=== PATIENT | male | born 1995 | race Caucasian/White ===

== ENCOUNTER 2017-08-25 07:39 | Emergency (ER) | payer BC ==
[2017-08-25 07:51] VITALS: BP 137/82
[2017-08-25] MEDS ORDERED: Ketorolac INJ* 60 MG/2 ML VIAL IM ONE (07:57)
--- NOTE | 2017-08-25 08:25 | RAD ---
INDICATION: RIGHT wrist and hand pain specifically at the ulnar aspect and third through fifth metacarpals following punching injury. COMPARISON: November 29, 2011 RIGHT thumb radiographs. TECHNIQUE: AP and lateral hand views RIGHT hand. AP, lateral, and oblique views RIGHT wrist REPORT AND IMPRESSION: #. Normal articular alignment at the wrist and hand. Small avulsion fracture from the ulnar dorsal margin of the hamate bone with overlying soft tissue swelling. No additional fracture evident at the wrist or hand.
--- NOTE | 2017-08-25 08:49 | UC ---
Shawn Muñoz Julia, scribed for Yevgeniy Danielson MD on 08/25/17 at 0802 . Upper Extremity HPI - HPI Summary HPI Summary: A 21 year old M presents to [facility] with a chief complaint of R hand and wrist pain after punching a wall and mirror about an hour ago. Pain is 8/10 in severity. Reports a few abrasions to the right hand. - History of Current Complaint Chief Complaint: UCUpperExtremity Stated Complaint: WRIST AND HAND INJURY Time Seen by Provider: 08/25/17 07:44 Hx Obtained From: Patient Onset/Duration: Lasting Hours Severity Initially: Severe Severity Currently: Severe Pain Intensity: 8 Pain Scale Used: 0-10 Numeric Location Of Pain: Is Discrete @ - right hand Associated Signs And Symptoms: Positive: Other - abrasions Related History: Dominant Hand Right - Allergies/Home Medications Allergies/Adverse Reactions: Allergies Allergy/AdvReac Type Severity Reaction Status Date / Time MS Sulfamethoxazole Allergy Mild Rash Verified 08/19/15 17:07 w/Trimethoprim [From Bactrim] sulfamethoxazole Allergy Rash Verified 08/25/17 07:51 [From Bactrim] trimethoprim [From Bactrim] Allergy Rash Verified 08/25/17 07:51 PMH/Surg Hx/FS Hx/Imm Hx Previously Healthy: Yes Other History Of: Negative For: Anticoagulant Therapy - Surgical History Surgical History: None - Family History Known Family History: Negative: Cardiac Disease - Social History Alcohol Use: Daily Substance Use Type: Marijuana Substance Use Comment - Amount & Last Used: last used 1 day ago Smoking Status (MU): Heavy Every Day Tobacco Smoker Type: Cigarettes Amount Used/How Often: 1 PPD Length of Time of Smoking/Using Tobacco: 5 YRS - Immunization History Most Recent Influenza Vaccination: not this season Most Recent Tetanus Shot: 2014 Review of Systems Constitutional: Negative Skin: Other - abrasions to right hand Musculoskeletal: Myalgia - right hand All Other Systems Reviewed And Are Negative: Yes Physical Exam - Summary Physical Exam Summary: VITAL SIGNS: Reviewed. GENERAL: Patient is a well-developed and nourished male who is lying comfortable in the stretcher. Patient is not in any acute respiratory distress. HEAD AND FACE: Normocephalic EYES: PERRLA, EOMI x 2. EARS: Hearing grossly intact. MOUTH: Oropharynx within normal limits. NECK: Supple, trachea is midline, no adenopathy, no JVD, no carotid bruit. CHEST: Symmetric, no tenderness at palpation LUNGS: Clear to auscultation bilaterally. No wheezing or crackles. CVS: Regular rate and rhythm, S1 and S2 present, no murmurs or gallops appreciated. ABDOMEN: Soft, non-tender. Bowel sounds are normal. No abdominal abnormal pulsations. EXTREMITIES: Full ROM in all major joints, no edema, no cyanosis or clubbing. Tenderness to the dorsal aspect of the right hand in the metacarpal area. NEURO: Alert and oriented x 3. No acute neurological deficits. Speech is normal and follows commands. SKIN: Dry and warm, Couple of abrasions to the right hand Triage Information Reviewed: Yes Vital Signs: Initial Vital Signs Temp 99.5 F 08/25/17 07:47 Pulse 79 08/25/17 07:47 Resp 18 08/25/17 07:47 BP 137/82 08/25/17 07:47 Pulse Ox 96 08/25/17 07:47 Vital Signs Reviewed: Yes Diagnostics - Radiology R HAND XR Radiology Interpretation Completed By: Radiologist - Normal articular alignment at the wrist and hand. Small avulsion fracture from the ulnar dorsal margin of the hamate bone with overlying soft tissue swelling. No additional fracture evident at the wrist or hand. Dr. Danielson has reviewed this repot. R WRIST XR Radiology Interpretation Completed By: Radiologist - Normal articular alignment at the wrist and hand. Small avulsion fracture from the ulnar dorsal margin of the hamate bone with overlying soft tissue swelling. No additional fracture evident at the wrist or hand. Dr. Danielson has reviewed this repot. Upper Extremity Course/Dx - Course Course Of Treatment: Patient has a hamate bone fracture which is not displaced. Patient will be placed in the right wrist splint and follow-up with orthopedics. Patient was given Frankewing for pain since the patient is unable to take NSAIDs. Patient is hemodynamically stable alert and oriented 3. - Differential Dx/Diagnosis Provider Diagnoses: Hamate bone fracture Discharge - Sign-Out/Discharge Documenting (check all that apply): Discharge/Admit/Transfer - Discharge Plan Condition: Stable Disposition: HOME Prescriptions: HYDROcodone/ACETAMIN 5-325 MG* [Frankewing 5-325 TAB*] 1 tab PO Q4H PRN #10 tab MDD 4 PRN Reason: Pain Patient Education Materials: Hand Fracture (ED) Referrals: Layne Arzola MD [Medical Doctor] - 2 Days (Follow up with orthopedics) [facility] [Outside] Additional Instructions: RETURN TO URGENT CARE OR THE EMERGENCY DEPARTMENT FOR ANY WORSENING OR NEW SYMPTOMS. - Billing Disposition and Condition Condition: STABLE Disposition: Home The documentation as recorded by the Shawn reid Julia accurately reflects the service I personally performed and the decisions made by Jagjit hickey Walter, MD.
== END 2017-08-25 08:50 | disposition home or self-care (01) ==
LOC: UCEAST 07:39
DX: S62.141A Displaced fracture of body of hamate [unciform] bone, right wrist, initial encounter for closed fracture (principal); F17.210 Nicotine dependence, cigarettes, uncomplicated; Z88.2 Allergy status to sulfonamides; Z88.1 Allergy status to other antibiotic agents; W22.01XA Walked into wall, initial encounter; Y93.89 Activity, other specified; Y92.9 Unspecified place or not applicable
CPT/HCPCS: 99213; G0463; J1885

== ENCOUNTER 2018-06-11 09:15 | Emergency (ER) | payer BC ==
[2018-06-11 09:31] VITALS: BP 133/75
[2018-06-11 10:01] LABS: Influenza A Molecular NEGATIVE (Negative); Influenza B Molecular NEGATIVE (Negative)
--- NOTE | 2018-06-11 10:42 | UC ---
HPI Febrile Illness - HPI Summary HPI Summary: 22 year old male with PMH + for GERD presents with fever tactile, chills, body aches, sore throat, sinus congestion but no pain since monday, with symptoms worsening since monday. no prior illnesss, no recent ABX use. - History of Current Complaint Chief Complaint: UCGeneralIllness Time Seen by Provider: 06/11/18 10:30 Hx Obtained From: Patient Timing: Constant Initial Severity: Moderate Current Severity: Moderate Pain Intensity: 7 Pain Scale Used: 0-10 Numeric Aggravating Factors: Nothing Associated Signs and Symptoms: Chills, Diaphoresis, Myalgia - Allergy/Home Medications Allergies/Adverse Reactions: Allergies Allergy/AdvReac Type Severity Reaction Status Date / Time MS Sulfamethoxazole Allergy Mild Rash Verified 08/19/15 17:07 w/Trimethoprim [From Bactrim] sulfamethoxazole Allergy Rash Verified 08/25/17 07:51 [From Bactrim] trimethoprim [From Bactrim] Allergy Rash Verified 08/25/17 07:51 PMH/Surg Hx/FS Hx/Imm Hx Previously Healthy: Yes - gerd Other History Of: Negative For: Anticoagulant Therapy - Surgical History Surgical History: None - Family History Known Family History: Positive: Unknown Negative: Cardiac Disease - Social History Alcohol Use: Rare Substance Use Type: Marijuana Substance Use Comment - Amount & Last Used: last used 1 day ago Smoking Status (MU): Heavy Every Day Tobacco Smoker Type: Cigarettes Amount Used/How Often: 1 PPD Length of Time of Smoking/Using Tobacco: 5 YRS - Immunization History Most Recent Influenza Vaccination: not this season Most Recent Tetanus Shot: 2014 Review of Systems All Other Systems Reviewed And Are Negative: Yes Constitutional: Positive: Fever, Chills, Fatigue ENT: Positive: Sore Throat, Sinus Congestion Respiratory: Positive: Cough Musculoskeletal: Positive: Myalgia Neurological: Positive: Headache Is Patient Immunocompromised?: No Physical Exam Triage Information Reviewed: Yes Appearance: No Pain Distress, Well-Nourished, Ill-Appearing - moderate Vital Signs: Initial Vital Signs Temp 98.7 F 06/11/18 09:28 Pulse 66 06/11/18 09:28 Resp 16 06/11/18 09:28 BP 133/75 06/11/18 09:28 Pulse Ox 100 06/11/18 09:28 Vital Signs Reviewed: Yes Eyes: Positive: Conjunctiva Clear ENT: Positive: Pharynx normal, TMs normal - scarring on R TM consistent with eus tubes at child, Uvula midline. Negative: Pharyngeal erythema, Nasal congestion, Nasal drainage, Tonsillar swelling, Tonsillar exudate, Dental tenderness, Sinus tenderness Neck: Positive: Supple, Nontender, No Lymphadenopathy. Negative: Nuchal Rigidity Respiratory: Positive: Chest non-tender, Lungs clear, Normal breath sounds, No respiratory distress, No accessory muscle use. Negative: Respiratory distress, Decreased breath sounds, Crackles, Rhonchi, Stridor, Wheezing Cardiovascular: Positive: RRR, No Murmur Abdomen Description: Positive: Nontender, No Organomegaly, Soft Musculoskeletal Exam: Normal Neurological Exam: Normal Skin Exam: Normal Course/Dx - Course Course Of Treatment: rapi dluf negative, likely viral URI, reviewed conservative treatment, work note given - Febrile Illness Differential Diagnoses: Cellulitis, Pneumonia, Sepsis, Viremia - Diagnoses Provider Diagnosis: Viral URI with cough Discharge - Sign-Out/Discharge Documenting (check all that apply): Patient Departure All imaging exams completed and their final reports reviewed: No Studies - Discharge Plan Condition: Fair Disposition: HOME Patient Education Materials: Viral Syndrome (ED) Forms: *Work Release Referrals: No Primary Care Phys,NOPCP [Primary Care Provider] - Additional Instructions: - Increase fluid intake - Motrin/ tylenol as needed for pain, fever, aches - Over the counter medications fr cough, congestion - Work note given - increase rest - Go to ER with neck pain/ stiffness, fever > 102, increased pain - Billing Disposition and Condition Condition: FAIR Disposition: Home
== END 2018-06-11 10:53 | disposition home or self-care (01) ==
LOC: UCEAST 09:15
DX: J06.9 Acute upper respiratory infection, unspecified (principal); R05 Cough; K21.9 Gastro-esophageal reflux disease without esophagitis; Z88.2 Allergy status to sulfonamides; F17.210 Nicotine dependence, cigarettes, uncomplicated
CPT/HCPCS: 99211; G0463

== ENCOUNTER 2018-06-25 09:02 | Emergency (ER) | payer BC ==
--- NOTE | 2018-06-25 10:01 | UC ---
Cardiac HPI - HPI Summary HPI Summary: 22-year-old male comes in with a chief complaint of left lower chest and epigastric pain that started suddenly this morning at approximately 2:30 AM. Pain is worse when he takes a deep breath. He does feel short of breath. No upper respiratory tract infection symptoms. He has had some cough. Denies any trauma. He also has a history of GERD and has epigastric pain now. Taking deep breath and movement makes the pain worse. The chest pain is moderate to severe at its worst. The epigastric pain is worse when he pushes on his stomach. - History of Current Complaint Chief Complaint: UCRespiratory Stated Complaint: CHEST CONGESTION Time Seen by Provider: 06/25/18 09:44 Pain Intensity: 7 - Allergy/Home Medications Allergies/Adverse Reactions: Allergies Allergy/AdvReac Type Severity Reaction Status Date / Time sulfamethoxazole Allergy Rash Verified 06/25/18 09:20 [From Bactrim] trimethoprim [From Bactrim] Allergy Rash Verified 06/25/18 09:20 PMH/Surg Hx/FS Hx/Imm Hx Previously Healthy: Yes Other History Of: Negative For: Anticoagulant Therapy - Surgical History Surgical History: None - Family History Known Family History: Positive: Unknown Negative: Cardiac Disease - Social History Alcohol Use: Rare Substance Use Type: Marijuana Substance Use Comment - Amount & Last Used: last used 1 day ago Smoking Status (MU): Heavy Every Day Tobacco Smoker Type: Cigarettes Amount Used/How Often: 1 PPD Length of Time of Smoking/Using Tobacco: 5 YRS - Immunization History Most Recent Influenza Vaccination: not this season Most Recent Tetanus Shot: 2014 Review of Systems All Other Systems Reviewed And Are Negative: Yes Constitutional: Positive: Negative Skin: Positive: Negative Eyes: Positive: Negative ENT: Positive: Negative Respiratory: Positive: Shortness Of Breath, Cough, Other - see hpi Cardiovascular: Positive: Chest Pain, Other - see hpi Gastrointestinal: Positive: Abdominal Pain Motor: Positive: Negative Neurovascular: Positive: Negative Musculoskeletal: Positive: Negative Neurological: Positive: Negative Psychological: Positive: Negative Is Patient Immunocompromised?: No Physical Exam Triage Information Reviewed: Yes Appearance: Well-Nourished, Ill-Appearing - mild, Pain Distress - mild at rest. Moderate with epigastric palpation Vital Signs: Initial Vital Signs Temp 99.7 F 06/25/18 09:17 Pulse 87 06/25/18 09:17 Resp 18 06/25/18 09:17 BP 124/78 06/25/18 09:17 Pulse Ox 97 06/25/18 09:17 Vital Signs Reviewed: Yes Eye Exam: Normal Eyes: Positive: Conjunctiva Clear Neck: Positive: Supple Respiratory: Positive: Lungs clear, Normal breath sounds, No respiratory distress Cardiovascular: Positive: RRR Abdomen Description: Positive: Other: - tender to palpation epigastrium Bowel Sounds: Positive: Hypoactive Musculoskeletal Exam: Normal Musculoskeletal: Positive: Strength Intact, ROM Intact Neurological Exam: Normal Neurological: Positive: Alert, Muscle Tone Normal Psychological Exam: Normal Psychological: Positive: Age Appropriate Behavior Skin Exam: Normal Diagnostics - EKG Cardiac Rate: NL - at 0958 Cardiac Rhythm: Sinus: Normal - 70bpm Ectopy: None Summary of EKG Findings: early repol - Assessment/Plan Course Of Treatment: Sent to Emergency Department for further evaluation by ambulance. - Clinical Impression Provider Diagnosis: Chest pain, Epigastric pain Discharge - Sign-Out/Discharge Documenting (check all that apply): Patient Departure All imaging exams completed and their final reports reviewed: No Studies - Discharge Plan Condition: Stable Disposition: TRANS HIGHER L OF CARE FAC Patient Education Materials: Chest Pain (ED), Epigastric Pain (ED) Referrals: [facility] [facility] [Outside] - Billing Disposition and Condition Condition: STABLE Disposition: Trans Higher Lvl of Care Fac
[2018-06-25 10:06] VITALS: BP 143/71
== END 2018-06-25 10:15 | disposition short-term general hospital (02) ==
LOC: UCEAST 09:02
DX: R07.89 Other chest pain (principal); R10.13 Epigastric pain; R06.02 Shortness of breath; R05 Cough; K21.9 Gastro-esophageal reflux disease without esophagitis; Z88.2 Allergy status to sulfonamides; F17.210 Nicotine dependence, cigarettes, uncomplicated
CPT/HCPCS: 99213; G0463

== ENCOUNTER 2018-06-25 10:30 | Emergency (ER) | payer BC ==
[2018-06-25] MEDS ORDERED: Ketorolac INJ* 30 MG/ML 1 ML VIAL IV ONE (10:53)
--- NOTE | 2018-06-25 10:58 | ED ---
HPI Chest Pain - HPI Summary HPI Summary: Patient is a 22 y/o M presenting to ED with complaints of left sided chest pain radiating "up and down my ribs". He states that pain onset 0200 this morning. He reports pain is aggravated by deep breaths and movement. He denies recent trauma or falls. Pain is described as sharp. SOB and nausea are endorsed but patient denies cough, fever and vomiting. PMHx of asthma, no PSHx reported. FMHx of cardiac disease, patient is a current smoker, reports rare alcohol usage , and states he smokes marijuana. On triage, pain is rated 5/10, it is noted that being in position alleviates Sx. Home medications and allergies are reviewed. - History of Current Complaint Chief Complaint: EDChestPainROMI Hx Obtained From: Patient Onset/Duration: Started Hours Ago - onset 0200 this morning, Still Present Timing: Constant, Lasting Hours - onset 0200 this morning Current Severity: Moderate - 5/10 Pain Intensity: 5 Pain Scale Used: 0-10 Numeric - 5/10 Chest Pain Location: Mid Sternal Chest Pain Radiates: Yes Chest Pain Radiates To:: Other - "up and down my ribs" Character: Sharp/Stabbing Aggravating Factor(s): Movement, Deep Breaths Alleviating Factor(s): Position - Associated Signs and Symptoms: Positive: Chest Pain, Shortness of Breath, Nausea , Other: - no recent trauma or falls. Negative: Fever, Cough, Productive Cough , Nonproductive Cough, Vomiting - Allergy/Home Medications Allergies/Adverse Reactions: Allergies Allergy/AdvReac Type Severity Reaction Status Date / Time sulfamethoxazole Allergy Rash Verified 06/25/18 09:20 [From Bactrim] trimethoprim [From Bactrim] Allergy Rash Verified 06/25/18 09:20 PMH/Surg Hx/FS Hx/Imm Hx Endocrine/Hematology History: Denies: Hx Anticoagulant Therapy, Hx Diabetes, Hx Thyroid Disease Cardiovascular History: Denies: Hx Hypertension Respiratory History: Reports: Hx Asthma Denies: Hx Chronic Obstructive Pulmonary Disease (COPD) GI History: Denies: Hx Ulcer - Immunization History Date of Tetanus Vaccine: Unk Date of Influenza Vaccine: None Infectious Disease History: No Infectious Disease History: Denies: Hx Clostridium Difficile, Hx Hepatitis, Hx Human Immunodeficiency Virus (HIV), Hx of Known/Suspected MRSA, Hx Shingles, Hx Tuberculosis, Hx Known/ Suspected VRE, Hx Known/Suspected VRSA, History Other Infectious Disease, Traveled Outside the [place] in Last 30 Days - Family History Known Family History: Positive: Cardiac Disease - Social History Alcohol Use: Rare Substance Use Type: Reports: Marijuana Substance Use Comment - Amount & Last Used: last used 1 day ago Smoking Status (MU): Heavy Every Day Tobacco Smoker Type: Cigarettes Amount Used/How Often: 1 PPD Length of Time of Smoking/Using Tobacco: 5 YRS Review of Systems Constitutional: Other - NEGATIVE - RECENT FALLS OR TRAUMA Negative: Fever Positive: Chest Pain Positive: Shortness Of Breath. Negative: Cough Positive: Nausea. Negative: Vomiting All Other Systems Reviewed And Are Negative: Yes Physical Exam - Summary Physical Exam Summary: VITAL SIGNS: Reviewed. GENERAL: Patient is a well-developed and nourished male who is lying comfortable in the stretcher. Patient is not in any acute respiratory distress. HEAD AND FACE: No signs of trauma. No ecchymosis, hematomas or skull depressions. No sinus tenderness. EYES: PERRLA, EOMI x 2, No injected conjunctiva, no nystagmus. EARS: Hearing grossly intact. Ear canals and tympanic membranes are within normal limits. MOUTH: Oropharynx within normal limits. NECK: Supple, trachea is midline, no adenopathy, no JVD, no carotid bruit, no c- spine tenderness, neck with full ROM. CHEST: Symmetric, reproducible chest pain at left and retrosternal areas. LUNGS: Clear to auscultation bilaterally. No wheezing or crackles. CVS: Regular rate and rhythm, S1 and S2 present, no murmurs or gallops appreciated. ABDOMEN: Soft, non-tender. No signs of distention. No rebound no guarding, and no masses palpated. Bowel sounds are normal. EXTREMITIES: FROM in all major joints, no edema, no cyanosis or clubbing. NEURO: Alert and oriented x 3. No acute neurological deficits. Speech is normal and follows commands. SKIN: Dry and warm Triage Information Reviewed: Yes Vital Signs On Initial Exam: Initial Vitals Temp Pulse Resp BP Pulse Ox 98.6 F 65 12 136/81 97 06/25/18 10:33 06/25/18 10:33 06/25/18 10:33 06/25/18 10:33 06/25/18 10:33 Vital Signs Reviewed: Yes Diagnostics - Vital Signs Vital Signs Temp Pulse Resp BP Pulse Ox 06/25/18 10:33 98.6 F 65 12 136/81 97 - Laboratory Result Diagrams: 06/25/18 11:10 06/25/18 11:10 Lab Statement: Any lab studies that have been ordered have been reviewed, and results considered in the medical decision making process. - Radiology CHEST X-RAY Radiology Interpretation Completed By: Radiologist Summary of Radiographic Findings: IMPRESSION: NO ACTIVE CARDIOPULMONARY DISEASE. THIS REPORT WAS REVIEWED BY DR. MELÉNDEZ - EKG 1104 Cardiac Rate: Bradycardia - rate of 55 BPM EKG Rhythm: Sinus Bradycardia Summary of EKG Findings: EKG showed sinus bradycardia with rate of 55 BPM, ST elevation in V2-6, likely a normal early repolarization pattern. Re-Evaluation - Re-Evaluation First Eval Re-Evaluation Time: 12:54 Comment: I discussed all the findings and test results with the patient. Patient was instructed to return to the emergency room immediately if any of the symptoms return worsens. Plan of care was discussed with the patient and understands and agrees. All questions were answered at patient satisfaction. There were no further complaints or concerns. Lung exam before discharge: CTA B/ L. Good air exchange. No wheezing or crackles heard. CVS: S1 and S2 present. No murmurs appreciated. Patient is alert and oriented x 3. Patient is hemodynamically stable. Patient will be discharged home with follow up PCP in the next 2-3 days Chest Pain Course/Dx - Course Assessment/Plan: This patient is a 22-year-old male who presents to the emergency department with a chief complaint of having left-sided chest pain with radiation to left side of the rib cage which started approximately 2 AM. He reports that the pain increases with deep inspiration and palpation. He denies any history of trauma or heavy lifting. He has past medical history significant for asthma. In the ED course the patient was placed on a cafeteria monitor, IV access was obtained and I ordered EKG and blood work. Chest x-ray impression: No active Pulmonary disease. Blood work without any significant abnormality except for WBCs of 14.7 without any bands. CMP within normal limits except for total creatine kinase of 398. The CK-MB is 2.4 and the troponin 0.00. Therefore I have no suspicion for an acute coronary syndrome. In the ED course the patient was given IV fluids and Toradol for the pain. The heart score is equal to 1, low suspicion for acute coronary syndrome. The patient is not tachycardic or hypoxic therefore have no suspicion for pulmonary embolism. Therefore I believe that the patient has a noncardiac chest pain therefore he will be discharged home with follow-up with primary care physician. I discussed all the findings and test results with the patient. Patient was instructed to return to the emergency room immediately if any of the symptoms return worsens. Plan of care was discussed with the patient and understands and agrees. All questions were answered at patient satisfaction. There were no further complaints or concerns. Lung exam before discharge: CTA B/L. Good air exchange. No wheezing or crackles heard. CVS: S1 and S2 present. No murmurs appreciated. Patient is alert and oriented x 3. Patient is hemodynamically stable. Patient will be discharged home with follow up PCP in the next 2-3 days - Chest Pain Differential Diagnosis/HQI/PQRI: Acute MD, ACS, Angina, CHF, Chest Wall, GI Disease, Lower Respiratory Infection - Diagnoses Provider Diagnoses: Atypical chest pain Discharge - Sign-Out/Discharge Documenting (check all that apply): Patient Departure - DISCHARGE Patient Received Moderate/Deep Sedation with Procedure: No - Discharge Plan Condition: Stable Disposition: HOME Patient Education Materials: Chest Pain (ED) Forms: *Work Release Referrals: [facility] [Outside] - 3 Days Additional Instructions: RETURN TO ED FOR ANY NEW OR WORSENING SYMPTOMS. FOLLOW UP WITH YOUR PRIMARY CARE PHYSICIAN WITHIN THREE DAYS. - Billing Disposition and Condition Condition: STABLE Disposition: Home - Attestation Statements Document Initiated by Iván: Yes Documenting Scribe: BRIAN CAMARENA Provider For Whom Iván is Documenting (Include Credential): MARE MELÉNDEZ MD Scribe Attestation: BRIAN Muñoz scrmartínezed for MARE MELÉNDEZ MD on 06/26/18 at 1049. Scribe Documentation Reviewed: Yes Provider Attestation: The documentation as recorded by the BRIAN reid accurately reflects the service I personally performed and the decisions made by me, MARE MELÉNDEZ MD Status of Scribe Document: Viewed
[2018-06-25 11:23] LABS: ABS Basophils 0.1 10^3/ul (0-0.2); ABS Lymphocytes 1.7 10^3/ul (1.0-4.8); ABS Monocytes 0.9 10^3/ul (0-0.8); ABS Neutrophils 11.9 10^3/ul (1.5-7.7); Eosinophil % 0.3 %; Hematocrit 46 % (42-52); Hemoglobin 15.5 g/dL (14.0-18.0); Lymphocyte % 11.9 %; Mean Corpuscular HGB Conc 34 g/dL (31-36); Mean Corpuscular Hemoglobin 30 pg (27-31); Mean Corpuscular Volume 87 fL (80-94); Mean Platelet Volume 8.4 fL (7.4-10.4); Platelet Count 228 10^3/uL (150-450); Red Blood Count 5.24 10^6 /uL (4.18-5.48); Red Cell Distribution Width 15 % (10.5-15); White Blood Count 14.7 10^3/uL (3.5-10.8)
[2018-06-25 12:03] LABS: Albumin 5.1 g/dL (3.2-5.2); BUN/Creatinine Ratio 13.4 (8-20); EGFR African American 176.3 (>60); EGFR Non-African American 145.7 (>60); Globulin 2.5 g/dL (2-4); Magnesium 2.4 mg/dL (1.9-2.7); Potassium 3.9 mmol/L (3.5-5.0); Total Bilirubin 0.6 mg/dL (0.2-1.0); Total Protein 7.6 g/dL (6.4-8.9)
[2018-06-25 12:06] LABS: CKMB ng/mL 2.4 ng/mL (0.6-6.3)
[2018-06-25 12:29] LABS: TSH (Thyroid Stimulating Horm) 2.28 mcIU/mL (0.34-5.60)
[2018-06-25] MEDS ORDERED: NS 0.9% 1000 ML** 1,000 ML IV ONE (12:51)
[2018-06-25 13:33] VITALS: BP 101/48
== END 2018-06-25 13:33 | disposition home or self-care (01) ==
LOC: ED 10:30
DX: R07.89 Other chest pain (principal); J45.909 Unspecified asthma, uncomplicated; F17.210 Nicotine dependence, cigarettes, uncomplicated; R06.02 Shortness of breath; R94.31 Abnormal electrocardiogram [ECG] [EKG]; Z88.2 Allergy status to sulfonamides; Z88.3 Allergy status to other anti-infective agents
CPT/HCPCS: 36415; 71046; 80053; 82550; 82553; 83605; 83735; 83880; 84443; 84484; 85025; 93005; 96374; 99283; J1885

== ENCOUNTER 2019-06-05 19:30 | Emergency (ER) | payer BC ==
--- OUTSIDE RECORDS SUMMARY | 2019-06-05 19:35 | XMS REPORT ---
:1995 Author Name Alvina Lira Address [address] [facility] [address] [place] [address] Support Name Relationship Address Phone Unavailable Unavailable Unavailable Unavailable Allergies, Adverse Reactions, Alerts Allergy Code CodeSystem Reaction Severity Criticality Status Start Substance Date Bactrim Rash Moderate Active Medications Medication Medication Medication Start Stop Route Dose Status Fill Code CodeSystem Date Date Instructions pantoprazole RxNorm 40 mgm QD active 40 mgm QD Vistaril RxNorm 50 mgm up active to 4xday PRN anxiety 50 mgm up to 4xday PRN anxiety Prazosin RxNorm 1 mgm HS active for nightmares 1 mgm HS for nightmares Relevant diagnostic tests/laboratory data Narrative No Information Procedures Procedure Code CodeSystem Target Date of Status Service Device Device Device Name Site Procedure Delivery Code Name UID Location SNOMED-CT () 2018-10-26 completed [facility] [address] [place], [address] [id number] SNOMED-CT () 2018-10-23 completed [facility] [address] [place], [address] [id number] SNOMED-CT () 2018-11-08 completed [facility] [address] [place], [address] [id number] SNOMED-CT () 2018-11-02 completed [facility] [address] [place], [address] [id number] SNOMED-CT () 2018-11-15 completed [facility] [address] [place], [address] [id number] SNOMED-CT () 2018-11-12 completed [facility] [address] [place], [address] [id number] SNOMED-CT () 2018-11-22 completed [facility] [address] [place], [address] [id number] SNOMED-CT () 2018-11-21 completed [facility] [address] [place], [address] [id number] SNOMED-CT () 2018-11-14 completed [facility] [address] [place], [address] [id number] SNOMED-CT () 2018-11-27 completed [facility] [address] [place], [address] [id number] SNOMED-CT () 2018-12-13 completed [facility] [address] [place], [address] [id number] SNOMED-CT () 2018-12-20 completed [facility] [address] [place], [address] [id number] SNOMED-CT () 2019-01-03 completed [facility] [address] [place], [address] [id number] SNOMED-CT () 2019-01-10 completed [facility] [address] [place], [address] [id number] SNOMED-CT () 2019-01-10 completed [facility] [address] [place], [address] [id number] SNOMED-CT () 2019-01-24 completed [facility] [address] [place], [address] [id number] SNOMED-CT () 2019-01-24 completed [facility] [address] [place], [address] [id number] SNOMED-CT () 2019-01-31 completed [facility] [address] [place], [address] [id number] SNOMED-CT () 2019-01-29 completed [facility] [address] [place], [address] [id number] SNOMED-CT () 2019-02-07 completed [facility] [address] [place], [address] [id number] SNOMED-CT () 2019-02-21 completed [facility] [address] [place], [address] [id number] SNOMED-CT () 2019-03-04 completed [facility] [address] [place], [address] [id number] SNOMED-CT () 2019-03-14 completed [facility] [address] [place], [address] [id number] SNOMED-CT () 2019-03-12 completed [facility] [address] [place], [address] [id number] SNOMED-CT () 2019-03-21 completed [facility] [address] [place], [address] [id number] SNOMED-CT () 2019-03-19 completed [facility] [address] [place], [address] [id number] SNOMED-CT () 2019-03-28 completed [facility] [address] [place], [address] [id number] SNOMED-CT () 2019-03-27 completed [facility] [address] [place], [address] [id number] SNOMED-CT () 2019-04-12 completed [facility] [address] [place], [address] [id number] SNOMED-CT () 2019-04-11 completed [facility] [address] [place], [address] [id number] SNOMED-CT () 2019-04-19 completed [facility] [address] [place], [address] [id number] SNOMED-CT () 2019-04-18 completed [facility] [address] [place], [address] [id number] SNOMED-CT () 2019-04-25 completed [facility] [address] [place], [address] [id number] SNOMED-CT () 2018-10-25 completed [facility] [address] [place], [address] [id number] SNOMED-CT () 2019-03-27 completed [facility] [address] [place], [address] [id number] SNOMED-CT () 2019-04-19 completed [facility] [address] [place], [address] [id number] SNOMED-CT () 2019-01-10 completed [facility] [address] [place], [address] [id number] SNOMED-CT () 2018-11-02 completed [facility] [address] [place], [address] [phone] SNOMED-CT () 2019-03-12 completed [facility] [address] [place], [address] [id number] SNOMED-CT () 2019-01-24 completed [facility] [address] [place], [address] [id number] SNOMED-CT () 2019-01-23 completed [facility] [address] [place], [address] [phone] SNOMED-CT () 2018-12-20 completed [facility] [address] [place], [address] [phone] Encounters/Encounter Diagnoses Encounter Encounter Diagnosis Diagnosis Diagnosis Date of Service Name Code Code Name CodeSystem Diagnosis Delivery Location IDP [facility] IDP SNOMED-CT 2019-03-19 [facility] , , , Vital Signs No Information Social History Element Description Description Start End Code CodeSystem AdditionalInfo Date Date SexAssignedAtBirth Male 1996-0 M AdministrativeGender 10-20 Hospital Discharge Instructions Reason For Referral Medical Equipment FDA Assessments
[2019-06-05 19:41] VITALS: BP 155/75
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
--- NOTE | 2019-06-06 09:02 | UC ---
- Progress Note Progress Note: PROGRESS NOTE: 06/06/19 REPORTED RESULTS: x ray negative for fracture, as read. PLAN: no change in diagnosis or treatment. Matheus Espinoza MD Course/Dx - Diagnoses Provider Diagnoses: Sprain of right index finger Discharge ED - Sign-Out/Discharge Documenting (check all that apply): Post-Discharge Follow Up All imaging exams completed and their final reports reviewed: Yes - Discharge Plan Condition: Stable Disposition: HOME Patient Education Materials: Finger Sprain (ED) Referrals: [facility] [Outside] - 1 Week [facility] [Outside] (BP recheck in 2-6 mos High today) Additional Instructions: advil or tylenol for pain rebekah tape - Billing Disposition and Condition Condition: STABLE Disposition: Home
== END 2019-06-05 19:59 | disposition home or self-care (01) ==
LOC: UCEAST 19:30
DX: S63.630A Sprain of interphalangeal joint of right index finger, initial encounter (principal); V86.56XA Driver of dirt bike or motor/cross bike injured in nontraffic accident, initial encounter; Y93.89 Activity, other specified; Y92.9 Unspecified place or not applicable; Z88.2 Allergy status to sulfonamides; F17.210 Nicotine dependence, cigarettes, uncomplicated
CPT/HCPCS: 73140; 99211; G0463